=== PATIENT | female | born 1955 | race Caucasian/White ===

== ENCOUNTER 2018-11-07 15:37 | Outpatient (CLI) | payer OTHER ==
[~2018-11-07 15:37] MED LIST: CATAFLAM50 MG PO; COZAAR25 MG; ENALAPRIL MALEA10 MG; GALANTAMINE HBR8 MG; ORPH100T PO
== END 2018-11-07 15:39 | disposition home or self-care (01) ==
LOC: RAD 15:37
DX: M99.01 Segmental and somatic dysfunction of cervical region (principal); M99.02 Segmental and somatic dysfunction of thoracic region; M99.03 Segmental and somatic dysfunction of lumbar region